=== PATIENT | male | born 1995 | race Caucasian/White ===

== ENCOUNTER 2019-06-09 21:14 | Emergency (ER) | payer OTHER ==
[~2019-06-09] VITALS: Ht 172.7 cm; Wt 133.8 kg
[2019-06-09 22:00] VITALS: BP 119/83
[2019-06-09] MEDS ORDERED: TAMIFLU75 MG PO (22:18)
[2019-06-09] MEDS ORDERED: TESSALON PERLE100 MG PO (22:19)
== END 2019-06-09 22:45 | disposition home or self-care (01) ==
LOC: ER 21:14
DX: R05 Cough (principal)